=== PATIENT | female | born 1965 | race Two or more races ===

== ENCOUNTER 2018-05-23 07:16 | Outpatient (CLI) | payer OTHER | END 2018-05-23 07:24 | disposition home or self-care (01) | LOC: SONOGRAMA 07:16 | DX: E04.2 Nontoxic multinodular goiter (principal) ==

== ENCOUNTER 2020-03-18 11:56 | Emergency (ER) | payer OTHER ==
[~2020-03-18] VITALS: Ht 165.1 cm; Wt 86.2 kg
[2020-03-18] MEDS ORDERED: FORTAMET500 MG PO (12:50)
== END 2020-03-18 20:29 | disposition home or self-care (01) ==
LOC: ER 11:56
DX: U07.1 COVID-19 (principal)